=== PATIENT | female | born 1995 | race Caucasian/White ===

== ENCOUNTER 2018-09-19 15:52 | Outpatient (REF) | payer MEDICAID, SELFPAY ==
--- NOTE | 2018-09-19 15:30 | PAPFT_PTH ---
PATIENT: Naya Segovia LOC: [facility] U#:[id number] AGE/SX: 23/F ROOM: RE09/19/[address]: Ailin Shen : 1995 BED: DIS: 09/19/2018 SPEC #: [id number] RECD: 09/19/18 16:37 STATUS: HATTIE REQ #: [id number] CYNTHIA: 09/19/18 15:[address]: Ailin Shen DEPT: [facility] Cytology RECD BY: Maribel Rahman ENTERED: 09/19/18 16:38 SP TYPE: PAPFT OTHR DR: Sandra Mann Tissues: 1 - CX/ENDOCX FOR PAP SMEARS Procedures: PAP THIN PREP/UVM Screening HPV DNA PROBE Comments: [id number] (CHLAMYDIA/GC)
[2018-09-19 18:53] LABS: *AMPHETAMINES SCREEN URINE Negative (Negative); *BARBITURATES SCREEN URINE Negative (Negative); *BENZODIAZEPINES SCREEN URINE Negative (Negative); Cannabinoids THC Negative (Negative); Cocaine Screen,Urine Negative (Negative); METHADONE URINE SCREEN Negative (Negative); OPIATES URINE SCREEN Negative (Negative)
[2018-09-19 19:01] LABS: Tricyclic Antidepressants Negative (Negative)
[2018-09-22 14:39] LABS: Chlamydia Result Negative; GC Result Negative; Specimen Description SEE COMMENTS
[2018-09-24 11:20] LABS: Buprenorphine Negative; Norbuprenorphine Negative
== END 2018-09-19 16:12 ==
LOC: LBN 15:52
PROVIDERS: PCP Nurse Practitioner Family; Visit Provider Advanced Practice Midwife
DX: O26.891 Other specified pregnancy related conditions, first trimester (principal); N89.8 Other specified noninflammatory disorders of vagina; Z34.91 Encounter for supervision of normal pregnancy, unspecified, first trimester; Z11.3 Encounter for screening for infections with a predominantly sexual mode of transmission; Z12.4 Encounter for screening for malignant neoplasm of cervix
CPT/HCPCS: 80307; 87491; 87591; 88142; 87086; 87480; 87510; 87624; 87660

== ENCOUNTER 2018-10-03 10:01 | Outpatient (CLI) | payer MEDICAID, SELFPAY ==
[2018-10-03 10:59] LABS: Glucose,1 Hr (Glucola) 127 mg/dL (80-140)
[2018-10-03 11:05] LABS: Abs Immature Grans 0.02 k/cumm (0.0-0.09); Absolute Basophil Count 0.01 k/cumm (0.0-0.2); Absolute Eosinophil Count 0.06 k/cumm (0.0-0.7); Absolute Lymphocyte Count 2.03 k/cumm (1.2-3.4); Absolute Monocyte Count 0.48 k/cumm (0.11-0.7); Absolute Neutrophil Count 5.11 k/cumm (1.2-6.7); Basophils % 0.1; Eosinophils % 0.8; HCT 34.6 % (36.0-46.0); HGB 11.3 g/dL (12.0-15.5); Immature Grans % 0.3; Lymphocytes % 26.3; Mean Corp. HGB Concentration 32.7 g/dL (32.0-36.0); Mean Corpuscular Hemoglobin 29.5 pg (27.0-33.0); Mean Corpuscular Volume 90.3 fL (80-95); Monocytes % 6.2; Neutrophils % 66.3; Platelet Count 319 x1000/uL (130-400); RBC 3.83 m/cumm (4.00-5.20); RBC Distribution Width 13.3 % (11.7-14.6); White Blood Cell Count 7.71 k/cumm (4.4-10.8)
[2018-10-03 11:49] LABS: FREE T4 1.31 ng/dL (0.76-1.46); TSH 1.98 uIU/mL (0.358-3.74)
[2018-10-06 11:05] LABS: Hepatitis B Surface Ag Negative (NEGAT)
[2018-10-06 11:07] LABS: HIV-1/2 Ag & Ab Screen Negative (NEGAT)
[2018-10-06 11:08] LABS: Hepatitis C Ab w Rflx HCV PCR Negative (NEGAT)
[2018-10-06 12:25] LABS: Syphilis Serology (RPR) Negative (Negative)
[2018-10-06 13:02] LABS: Varicella IgG Antibody Positive
[2018-10-06 13:50] LABS: Rubella IgG Ab (UVM) Positive
== END 2018-10-03 10:21 ==
PROVIDERS: PCP Nurse Practitioner Family; Visit Provider Advanced Practice Midwife
DX: Z34.90 Encounter for supervision of normal pregnancy, unspecified, unspecified trimester (principal)
CPT/HCPCS: 36415; 80055; 82950; 86787; 86803; 86850; 86900; 86901; 87340; 87389; 84439; 84443; 86592; 86762

== ENCOUNTER 2018-11-12 07:54 | Observation (INO) | payer MEDICAID, SELFPAY ==
--- NOTE | 2018-11-12 08:35 | W.PM.HP.N ---
Assessment and Plan (1) Abdominal trauma: Current visit: Yes Status: Acute No acute pain or distress. Follow up with appointment at [facility] 11/17. Reviewed precautions and patient was instructed to call with bleeding, pain, contractions. (2) Second trimester : Current visit: Yes Status: Acute OB US for survey scheduled History of Present Illness Naya is a patient of [facility] and the MDs. She presented to the ED this morning after a fall in which she struck the left side of her abdomen and flank. She had some tightening of her abdomen initially but denies any pain at the moment. FHts 140 with doppler. No uterine activity detected with toco. Review of Systems Constitutional Reports as per [facility] Medical History ASCUS of cervix with negative high risk HPV (Chronic) Acquired hypothyroidism (Acute 08/27/17) Breast mass, right (Acute 08/29/17) History of asthma (Acute 11/15/16) Hypothyroidism affecting in first trimester (Acute 11/15/16) Maternal obesity syndrome in first trimester (Acute 11/15/16) (Acute) Arthritis of foot, left (Chronic) Arthritis of knee, right (Chronic) Arthritis of wrist, left (Chronic) Asthma, chronic (Chronic 97) BMI 39.0-39.9,adult (Chronic) Hypothyroid (Chronic 07/18/16) Breast abscess (Resolved) History of irregular menstrual bleeding (Resolved) Surgical History Cholecystectomy (Resolved ~2017) Arthroscopy (Chronic) Tonsillectomy and adenoidectomy (Resolved 11/05/06) Family History Mother Age: 46 No problems noted. Father Age: 45 No problems noted. Brother Age: 27 Asthma Grandmother Age: 79 Diabetes Heart disease Asthma Grandfather No problems noted. 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 Maya (Jaxon) Female Reproductive History Menstrual control method: none History History 2 Para 1 Hx # Term Pregnancies 1 Multiple births Hx # Pregnancies 0 Ectopic pregnancies AB induced Hx Number of Living Children 1 AB spontaneous Past Pregnancies Del. Date GA/Weeks # Outcome Route Wgt Sex Labor Lgth Anesthesia Location Prov Complic 06/24/16 vaginal Male O'Ad Delivery Date: 06/24/16 On 09/19/18 @ 16:51 Ailin Shen precipitous labor Meds Home Medications Medication Instructions Recorded Confirmed Type levothyroxine 100 mcg PO DAILY #60 tab 06/27/17 10/20/18 Rx acetaminophen [Tylenol] 650 mg PO Q4H PRN PRN tab 09/02/17 10/20/18 Rx 1 tab PO DAILY 09/19/18 10/20/18 History vitamin,calcium,wrurgizq-fccd-suhmk acid tablet Allergies Allergy/AdvReac Type Severity Reaction Status Date / Time azithromycin Allergy Severe Hives, Unverified 10/20/18 14:32 DIFFICULTY BREATHING Exam Const General: cooperative and no acute distress Nutritional Appearance: obese Orientation: alert and oriented to place Other: VSS
--- NOTE | 2018-11-12 08:38 | HPE_ITS ---
Assessment and Plan (1) Abdominal trauma: Current visit: Yes Status: Acute No acute pain or distress. Follow up with appointment at [facility] 11/17. Reviewed precautions and patient was instructed to call with bleeding, pain, contractions. (2) Second trimester : Current visit: Yes Status: Acute OB US for survey scheduled History of Present Illness Naya is a patient of [facility] and the MDs. She presented to the ED this morning after a fall in which she struck the left side of her abdomen and flank. She had some tightening of her abdomen initially but denies any pain at the moment. FHts 140 with doppler. No uterine activity detected with toco. Review of Systems Constitutional Reports as per [facility] Medical History ASCUS of cervix with negative high risk HPV (Chronic) Acquired hypothyroidism (Acute 08/27/17) Breast mass, right (Acute 08/29/17) History of asthma (Acute 11/15/16) Hypothyroidism affecting in first trimester (Acute 11/15/16) Maternal obesity syndrome in first trimester (Acute 11/15/16) (Acute) Arthritis of foot, left (Chronic) Arthritis of knee, right (Chronic) Arthritis of wrist, left (Chronic) Asthma, chronic (Chronic 97) BMI 39.0-39.9,adult (Chronic) Hypothyroid (Chronic 07/18/16) Breast abscess (Resolved) History of irregular menstrual bleeding (Resolved) Surgical History Cholecystectomy (Resolved ~2017) Arthroscopy (Chronic) Tonsillectomy and adenoidectomy (Resolved 11/05/06) Family History Mother Age: 46 No problems noted. Father Age: 45 No problems noted. Brother Age: 27 Asthma Grandmother Age: 79 Diabetes Heart disease Asthma Grandfather No problems noted. 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 Maya (Jaxon) Female Reproductive History Menstrual control method: none History History 2 Para 1 Hx # Term Pregnancies 1 Multiple births Hx # Pregnancies 0 Ectopic pregnancies AB induced Hx Number of Living Children 1 AB spontaneous Past Pregnancies Del. Date GA/Weeks # Outcome Route Wgt Sex Labor Lgth Anesthesia Location Prov Complic 06/24/16 vaginal Male O'Ad Delivery Date: 06/24/16 On 09/19/18 @ 16:51 Ailin Shen precipitous labor Meds Home Medications Medication Instructions Recorded Confirmed Type levothyroxine 100 mcg PO DAILY #60 tab 06/27/17 10/20/18 Rx acetaminophen [Tylenol] 650 mg PO Q4H PRN PRN tab 09/02/17 10/20/18 Rx 1 tab PO DAILY 09/19/18 10/20/18 History vitamin,calcium,tffapdkg-hbuw-huwwo acid tablet Allergies Allergy/AdvReac Type Severity Reaction Status Date / Time azithromycin Allergy Severe Hives, Unverified 10/20/18 14:32 DIFFICULTY BREATHING Exam Const General: cooperative and no acute distress Nutritional Appearance: obese Orientation: alert and oriented to place Other: VSS
== END 2018-11-12 08:45 | disposition home or self-care (01) ==
LOC: OBS 09:01
PROVIDERS: Admitting Provider Advanced Practice Midwife; PCP Nurse Practitioner Family; Visit Provider Advanced Practice Midwife
DX: O9A.212 Injury, poisoning and certain other consequences of external causes complicating pregnancy, second trimester (principal); S39.91XA Unspecified injury of abdomen, initial encounter; Z3A.18 18 weeks gestation of pregnancy; W19.XXXA Unspecified fall, initial encounter
CPT/HCPCS: 99219; G0378

== ENCOUNTER 2018-11-28 00:30 | Outpatient (CLI) | payer MEDICAID, SELFPAY ==
--- NOTE | 2018-11-28 14:17 | DI.US_ITS ---
SYMPTOMS/DIAGNOSIS: SURVEY, Z34.90 OB ULTRASOUND: The is a single living intrauterine gestation. Estimated sonographic age is 20 weeks 5 days. Predicted Gestational Age: Indication/History: 19+2 Wks Range: 18+2 Wks to 20+2 Wks Prior US done on: Determined by: First US LMP History EDC by prior US: 04/22/19 For multiple gestations: Baby PLACENTA: Grade: 0-I Location: Anterior X Posterior PRESENTATION: RT LT LOW LYING PREVIA Cephalic Trans (Head RT LT ) Varied Breech BIOMETRY: Anatomy Identified: BPD: 48 mm 20+4 wks 4 chamber Heart X Heart Rate 153 BPM HC: 182 mm 20+4 wks LVOT X Post Fossa X AC: 155 mm 20+5 wks RVOT X Ventricles X FL: 35 mm 21 wks Stomach X Nose X Bladder X Lips X Cisterna Magna: 4.7 mm CI: 77.4 Kidneys X Palate X Cerebellum: 2.04 mm 3 vessel cord X Spine X EFW: 380 grms 99% Cord Insertion X NS= not seen Composite Age (US) 20+5 wks Many abnormalities cannot be diagnosed. A normal exam does not exclude congenital abnormality. EDC by US 04/12/19 Amniotic Fluid Index: Normal COMMENTS: RUQ: LUQ: RLQ: LLQ: Total: cm Biophysical Profile: Score 0/2 NEERAJ (>2cm) Respirations (>30 sec) Body flexion/extension Extremity flexion/extension TOTAL SCORE
== END 2018-11-28 00:50 ==
PROVIDERS: PCP Nurse Practitioner Family; Visit Provider Advanced Practice Midwife
DX: Z34.92 Encounter for supervision of normal pregnancy, unspecified, second trimester (principal)
CPT/HCPCS: 76805

== ENCOUNTER 2019-01-12 11:52 | Outpatient (CLI) | payer MEDICAID, SELFPAY ==
[2019-01-12 14:10] LABS: FREE T4 1.62 ng/dL (0.76-1.46); TSH 2.31 uIU/mL (0.358-3.74)
== END 2019-01-12 12:12 ==
PROVIDERS: PCP Nurse Practitioner Family; Visit Provider Obstetrics & Gynecology
DX: O99.283 Endocrine, nutritional and metabolic diseases complicating pregnancy, third trimester; E03.9 Hypothyroidism, unspecified
CPT/HCPCS: 36415; 84439; 84443

== ENCOUNTER 2019-01-26 11:58 | Outpatient (CLI) | payer MEDICAID, SELFPAY ==
[2019-01-26 12:32] LABS: Abs Immature Grans 0.05 k/cumm (0.0-0.09); Absolute Basophil Count 0.03 k/cumm (0.0-0.2); Absolute Eosinophil Count 0.03 k/cumm (0.0-0.7); Absolute Lymphocyte Count 2.19 k/cumm (1.2-3.4); Absolute Monocyte Count 0.58 k/cumm (0.11-0.7); Absolute Neutrophil Count 8.72 k/cumm (1.2-6.7); Basophils % 0.3; Eosinophils % 0.3; HCT 33.5 % (36.0-46.0); Immature Grans % 0.4; Lymphocytes % 18.9; Mean Corp. HGB Concentration 32.8 g/dL (32.0-36.0); Mean Corpuscular Hemoglobin 30.7 pg (27.0-33.0); Mean Corpuscular Volume 93.6 fL (80-95); Mean Platelet Volume 9.8 fL (8.0-11.0); Neutrophils % 75.1; Platelet Count 321 x1000/uL (130-400); RBC 3.58 m/cumm (4.00-5.20); RBC Distribution Width 13.9 % (11.7-14.6); White Blood Cell Count 11.61 k/cumm (4.4-10.8)
[2019-01-26 12:39] LABS: Glucose,1 Hr (Glucola) 115 mg/dL (80-140)
== END 2019-01-26 12:18 ==
PROVIDERS: PCP Nurse Practitioner Family; Visit Provider Obstetrics & Gynecology
DX: Z34.92 Encounter for supervision of normal pregnancy, unspecified, second trimester (principal)
CPT/HCPCS: 36415; 82950; 85025

== ENCOUNTER 2019-02-13 09:40 | Outpatient (CLI) | payer MEDICAID, SELFPAY ==
[2019-02-13 11:02] LABS: FREE T4 1.47 ng/dL (0.76-1.46); TSH 1.99 uIU/mL (0.36-3.74)
== END 2019-02-13 10:00 ==
PROVIDERS: PCP Nurse Practitioner Family; Visit Provider Obstetrics & Gynecology
DX: Z34.93 Encounter for supervision of normal pregnancy, unspecified, third trimester (principal); E03.9 Hypothyroidism, unspecified
CPT/HCPCS: 36415; 86850; 86900; 86901; 90384; 84439; 84443

== ENCOUNTER 2019-03-04 15:24 | Outpatient (CLI) | payer MEDICAID, SELFPAY | END 2019-03-04 15:44 | PROVIDERS: PCP Nurse Practitioner Family; Visit Provider Obstetrics & Gynecology | DX: O46.93 Antepartum hemorrhage, unspecified, third trimester (principal); Z3A.33 33 weeks gestation of pregnancy | CPT/HCPCS: 59025 ==

== ENCOUNTER 2019-03-19 16:52 | Outpatient (REF) | payer MEDICAID, SELFPAY | END 2019-03-19 17:12 | LOC: LBN 16:52 | PROVIDERS: PCP Nurse Practitioner Family; Visit Provider Obstetrics & Gynecology | DX: Z34.93 Encounter for supervision of normal pregnancy, unspecified, third trimester (principal); Z36.85 Encounter for antenatal screening for Streptococcus B | CPT/HCPCS: 87081 ==

== ENCOUNTER 2019-03-27 13:32 | Outpatient (CLI) | payer MEDICAID, SELFPAY ==
[2019-03-27 15:20] LABS: TSH (W/Ref FT4) 1.98 uIU/mL (0.36-3.74)
== END 2019-03-27 13:52 ==
PROVIDERS: PCP Nurse Practitioner Family; Visit Provider Obstetrics & Gynecology
DX: O99.283 Endocrine, nutritional and metabolic diseases complicating pregnancy, third trimester (principal); Z34.93 Encounter for supervision of normal pregnancy, unspecified, third trimester
CPT/HCPCS: 36415; 80307; 84443

== ENCOUNTER 2019-03-27 16:10 | Outpatient (REF) | payer MEDICAID, SELFPAY ==
[2019-03-27 16:53] LABS: *AMPHETAMINES SCREEN URINE Negative (Negative); *BARBITURATES SCREEN URINE Negative (Negative); *BENZODIAZEPINES SCREEN URINE Negative (Negative); Cannabinoids THC Negative (Negative); Cocaine Screen,Urine Negative (Negative); METHADONE URINE SCREEN Negative (Negative); OPIATES URINE SCREEN Negative (Negative)
[2019-03-27 16:54] LABS: Tricyclic Antidepressants Negative (Negative)
[2019-04-03 11:27] LABS: Buprenorphine Negative
== END 2019-03-27 16:30 ==
LOC: LBN 16:10
PROVIDERS: PCP Nurse Practitioner Family; Visit Provider Obstetrics & Gynecology
DX: Z34.93 Encounter for supervision of normal pregnancy, unspecified, third trimester (principal)
CPT/HCPCS: 80307

== ENCOUNTER 2019-04-25 05:37 | Inpatient (IN) | payer MEDICAID, SELFPAY ==
[2019-04-25 06:43] LABS: HCT 34.5 % (36.0-46.0); HGB 11.5 g/dL (12.0-15.5); Mean Corp. HGB Concentration 33.3 g/dL (32.0-36.0); Mean Corpuscular Hemoglobin 30.7 pg (27.0-33.0); Mean Platelet Volume 9.4 fL (8.0-11.0); Platelet Count 360 x1000/uL (130-400); RBC 3.75 m/cumm (4.00-5.20); RBC Distribution Width 13.9 % (11.7-14.6); White Blood Cell Count 12.85 k/cumm (4.4-10.8)
[2019-04-25] MEDS: Ibuprofen 600 MG TAB PO ×3 (09:18→22:57)
[2019-04-25] MEDS: Hamamelis Leaf/Glycerin 100 EACH BOX PR (09:19)
[2019-04-25] MEDS: Oxytocin 10 UNITS/ML VIAL (10:11)
[2019-04-26] MEDS: Ibuprofen 600 MG TAB PO ×2 (06:12→13:20)
[2019-04-26] MEDS: Levothyroxine 100 MCG TAB PO (06:13)
[2019-04-26] MEDS: Acetaminophen 325 MG TAB 650 MG PO (13:20)
== END 2019-04-26 13:30 | disposition home or self-care (01) | DRG 807 ==
PROVIDERS: Admitting Provider Obstetrics & Gynecology Gynecology; PCP Nurse Practitioner Family; Visit Provider Obstetrics & Gynecology Gynecology
DX: O48.0 Post-term pregnancy (principal); Z37.0 Single live birth; Z3A.40 40 weeks gestation of pregnancy; O70.0 First degree perineal laceration during delivery; O42.02 Full-term premature rupture of membranes, onset of labor within 24 hours of rupture; O99.284 Endocrine, nutritional and metabolic diseases complicating childbirth; E03.9 Hypothyroidism, unspecified
CPT/HCPCS: 85027; 86850; 86900; 86901; J2590

== ENCOUNTER 2019-05-07 21:26 | Inpatient (IN) | payer MEDICAID, SELFPAY ==
--- NOTE | 2019-05-07 21:39 | W.PM.HP.N ---
Date of service: 05/07/19 Time of Service: 21:39 Assessment and Plan Assessment and plan (1) endometritis: Status: Acute Assessment and plan: Plan to make the patient a full admit. We will start on clindamycin/gentamicin for IV antibiotics. Tylenol for fever. Plan for a pelvic ultrasound in the morning to rule out retained products of conception. Will obtain CBC with differential at this evening. History of Present Illness History of Present Illness Chief Complaint: Fevers and abdominal pain Narrative: 24-year-old now approximately 1 week presents today with complaint of fevers and chills x24 hours. The patient reports that she has had increasing abdominal pain in the midline low abdomen also in the same time. She reports fevers as high as 100.8 at home. She denies any abnormal vaginal discharge. No breast tenderness. She reports fatigue and malaise as well. 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 Maya (Jaxon) Female Reproductive History Menstrual control method: none History History 2 Para 1 Hx # Term Pregnancies 1 Multiple births Hx # Pregnancies 0 Ectopic pregnancies AB induced Hx Number of Living Children 1 AB spontaneous Past Pregnancies Del. Date GA/Weeks # Outcome Route Wgt Sex Labor Lgth Anesthesia Location Prov [facility] 06/24/16 vaginal Male O'Ad Delivery Date: 06/24/16 On 11/17/18 @ 17:18 Kendra Mendez precipitous labor. Ed. Meds Home Medications and Allergies Home Medications Medication Instructions Recorded Confirmed Type prenat.vits,reinaldo,vjh-wvxp-bbjmu 1 tab PO DAILY 09/19/18 04/25/19 History levothyroxine 100 mcg tablet 100 mcg PO DAILY 02/24/19 04/25/19 History Allergies Allergy/AdvReac Type Severity Reaction Status Date / Time azithromycin Allergy Severe Hives, Unverified 04/25/19 06:26 DIFFICULTY BREATHING Exam GI Other: On exam she has significant tenderness in the low midline abdomen. No rebound or guarding. No peritoneal signs. Results Labs Result diagrams: 05/07/19 21:30
[2019-05-07] MEDS: Ibuprofen 600 MG TAB PO (22:27)
[2019-05-07] MEDS: HYDROcodone 5/Acetaminophen 325 TAB PO (22:27)
[2019-05-07 22:33] VITALS: BP 105/74; PULSE 92; RESP 18; TEMP 38.2
[2019-05-07 23:07] LABS: Bilirubin Negative (Negative); Blood Negative (Negative); Clarity Sl Cloudy (Clear); Glucose Negative (Negative); Ketones Negative (Negative); Leukocyte Esterase Trace (Negative); Nitrite Negative (Negative); Specific Gravity 1.015 (1.005-1.025); pH 8.5 (5-8)
[2019-05-07 23:11] LABS: Bacteria Few HPF (Negative); Crystals Few Amorphous HPF (Negative); Epithelial Cells Few HPF (Negative); RBC Negative (0-2)
[2019-05-07 23:12] LABS: C & S Indicated? Yes; Casts Negative LPF (Negative); Mucus Trace (Negative)
[2019-05-07 23:40] LABS: HCT 33.8 % (36.0-46.0); HGB 11.3 g/dL (12.0-15.5); Mean Corp. HGB Concentration 33.4 g/dL (32.0-36.0); Mean Corpuscular Hemoglobin 30.7 pg (27.0-33.0); Mean Corpuscular Volume 91.8 fL (80-95); Mean Platelet Volume 8.9 fL (8.0-11.0); Platelet Count 403 x1000/uL (130-400); RBC 3.68 m/cumm (4.00-5.20); RBC Distribution Width 13.3 % (11.7-14.6); White Blood Cell Count 21.01 k/cumm (4.4-10.8)
[2019-05-08] MEDS: Lactated Ringers 1,000 ML 125 ML IV ×3 (00:15→22:08)
[2019-05-08] MEDS: CLINDAMYCIN 900 MG/50 ML BAG 50 MG IVPB ×3 (00:39→23:51)
[2019-05-08 00:40] VITALS: PULSE 90; RESP 18; TEMP 38.2
[2019-05-08 07:30] VITALS: BP 98/63; PULSE 75; RESP 16; TEMP 36.7; O2SAT 100
--- NOTE | 2019-05-08 11:00 | DI.US_ITS ---
EXAM: US PELVIS TRANSVAGINAL CLINICAL HISTORY: endometritis. Evaluate for retained POC TECHNIQUE: Ultrasound performed using standard protocol. Transabdominal and transvaginal exams were performed. COMPARISON: No exams were available for comparison FINDINGS: The uterus is enlarged, consistent with status, measuring 12.5 x 8.1 x 10.8 cm. There is fluid within the endometrium which shows some internal echoes which could represent normal postpartu m hemorrhage. There is no evidence of retained products of conception. Right ovary was not able to be visualized. The left ovary was seen transabdominally and appeared normal in size. No free fluid or hydronephrosis is seen. There is a 4 millimeter nonobstructing stone in the left kidney. IMPRESSION: Enlarged hypervascular uterus with fluid and/or hemorrhage within the endometrial cavity. No visible retained products of conception.
[2019-05-08] MEDS: HYDROcodone 5/Acetaminophen 325 TAB PO ×3 (12:29→23:51)
[2019-05-08 17:45] VITALS: BP 120/72; PULSE 76; RESP 16; TEMP 37.6; O2SAT 96
[2019-05-08] MEDS: Ibuprofen 600 MG TAB PO (19:18)
--- NOTE | 2019-05-09 05:51 | NUR.NOTE ---
Nursing Note:patient arrived to the floor on 07/18 at 23:12 from the third floor. Her assessment is within normal limits. She states she is in 5/10 abd pain. She is resting comfortably in bed. Will continue to monitor.
[2019-05-09] MEDS: Ibuprofen 600 MG TAB PO ×2 (06:16→10:35)
[2019-05-09] MEDS: HYDROcodone 5/Acetaminophen 325 TAB PO (06:16)
[2019-05-09 06:19] VITALS: BP 109/71; PULSE 62; RESP 18; TEMP 36.5; O2SAT 98
[2019-05-09 08:10] VITALS: BP 112/72; PULSE 58; RESP 17; TEMP 36.8; O2SAT 99
[2019-05-09] MEDS: Lactated Ringers 1,000 ML 125 ML IV ×2 (08:44→20:37)
[2019-05-09] MEDS: CLINDAMYCIN 900 MG/50 ML BAG 50 MG IVPB ×3 (08:46→23:50)
--- NOTE | 2019-05-09 10:19 | INITIAL_ITS ---
- If Service Date Differs Date of service: 05/09/19 Time of Service: 10:20 Care Management Initial Assess REASON FOR HOSPITALIZATION:: Endometritis PAST MEDICAL HISTORY/PAST SURGICAL HISTORY:: Asthma, Osteoarthritis, breast abcess, mastitis, hypothyroidism, obesity, tonsillectomy PREVIOUS FUNCTIONAL STATUS/SOCIAL/FAMILY SUPPORTS:: Naya lives in [place] with her Ramo. Her parents also live in the home. She works in the kitchen of the local school, and Ramo works at [employer]. They have two children, Zain, who is 1.5 years old and Bety, 2 weeks old. Naya is independent at baseline. CURRENT FUNCTIONAL STATUS:: Naya was sitting up in bed when CM met with her. Her was by her side. She reported that she just had a baby, so she is hoping to go home to be with the baby soon. She stated that per the MD, if her bloodwork is ok and her pain is under control, she will be able to leave today or tomorrow. CM will continue to follow. ADVANCE DIRECTIVES:: On file, Ramo () listed as agent. Has patient been provided with information about the portal?: Yes Did the patient sign up for the portal?: No CODE STATUS:: Full Code INSURANCE COVERAGE / FINANCIAL ISSUES:: [employer] CURRENT HOME/COMMUNITY SERVICES/EQUIPMENT:: Naya currently has no services or equipment PRIMARY CARE PHYSICIAN:: Sandra Mann POTENTIAL DISCHARGE NEEDS:: Evaluation for further needs, follow up appoinments PATIENT/FAMILY EDUCATION NEEDS:: Review discharge instructions, discussion of self care needs including Ask Me Three ANTICIPATED BARRIERS TO DISCHARGE:: None identified at this time TRANSPORTATION:: Anticipate Naay will be driven home via private car by her PLAN:: Anticipate Naya will return home when medically cleared with no additional services. She will follow up with her PCP, as recommended. Her will drive her home via private vehicle. CM will continue to follow and support patient with discharge planning needs.
[2019-05-09] MEDS: Polyethylene Glycol 3350 17 GM PACKET PO ×2 (10:27→20:38)
[2019-05-09 12:08] LABS: Abs Immature Grans 0.03 k/cumm (0.0-0.09); Absolute Basophil Count 0.02 k/cumm (0.0-0.2); Absolute Eosinophil Count 0.08 k/cumm (0.0-0.7); Absolute Lymphocyte Count 1.86 k/cumm (1.2-3.4); Absolute Monocyte Count 0.69 k/cumm (0.11-0.7); Absolute Neutrophil Count 3.13 k/cumm (1.2-6.7); Basophils % 0.3; Eosinophils % 1.4; HCT 28.3 % (36.0-46.0); HGB 8.8 g/dL (12.0-15.5); Immature Grans % 0.5; Mean Corp. HGB Concentration 31.1 g/dL (32.0-36.0); Mean Corpuscular Hemoglobin 29.8 pg (27.0-33.0); Mean Corpuscular Volume 95.9 fL (80-95); Mean Platelet Volume 9.3 fL (8.0-11.0); Monocytes % 11.9; Neutrophils % 53.9; RBC 2.95 m/cumm (4.00-5.20); RBC Distribution Width 13.7 % (11.7-14.6); White Blood Cell Count 5.81 k/cumm (4.4-10.8)
[2019-05-09 12:23] LABS: Diff Comment RBC Morph Reviewed; Hypochromasia 1+; Platelet Count 264 x1000/uL (130-400)
[2019-05-09] MEDS: Acetaminophen 325 MG TAB 650 MG PO (13:49)
[2019-05-09 15:52] VITALS: BP 98/64; PULSE 54; RESP 18; TEMP 36.4; O2SAT 100
--- NOTE | 2019-05-09 17:51 | W.PM.PROGNOT ---
Date of Service Date of service: 05/08/19 Time of Service: 13:30 Assessment and Plan Assessment and plan (1) endometritis: Status: Acute Assessment and plan: Afebrile overnight. Continue Clinda/Gent. Will need the patient afebrile at least 48 hours prior to considering discontinuation of antibiotics and discharge. Subjective Subjective Interval history since last seen: Patient has been afebrile overnight. Still reports abdominal pain rated 4 out of 10 on pain scale. No abnormal vaginal discharge. I did review the ultrasound with her. Which did not demonstrate any retained products of conception. Appetite is okay. Objective Objective Clinical Data: Abnormal lab results 05/09/19 Range/Units 11:45 RBC 2.95 L (4.00-5.20) m/cumm Hgb 8.8 L D (12.0-15.5) g/dL Hct 28.3 L (36.0-46.0) % MCV 95.9 H (80-95) fL MCHC 31.1 L (32.0-36.0) g/dL Vital Signs Temperature 97.5 F L 05/09/19 15:52 Temperature Source Tympanic 05/09/19 15:52 Pulse 54 L 05/09/19 15:52 Pulse Rhythm Regular 05/09/19 15:30 Respiratory Rate 18 05/09/19 15:52 Respiratory Effort Non-Labored 05/09/19 15:30 Respiratory Depth Normal 05/09/19 15:30 Respiratory Pattern Normal 05/09/19 15:30 Blood Pressure 98/64 L 05/09/19 15:52 Pulse Oximetry 100 05/09/19 15:52 Oxygen Delivery Method Room Air 05/09/19 15:52 Oxygen Flow Rate 0 05/09/19 15:52 Pain Level 2 05/09/19 15:52 Comment 05/09/19 15:52 Intake & Output 05/08/19 05/09/19 05/09/19 23:59 11:59 23:59 Intake Total 1625.833 / 3387.500 1792.917 / 2303.334 510.417 / 2303.334 Balance 1625.833 / 3387.500 1792.917 / 2303.334 510.417 / 2303.334 Intake: IV 1625.833 / 2787.500 1102.917 / 1613.334 510.417 / 1613.334 Oral 690 / 690 Other: Urine Appearance Clear Comment Pt voiding independently pt voiding independently in the bathroom Stool Size Moderate Stool Characteristics Soft Brown Voiding Methods Toilet Toilet Laboratory Results WBC 5.81 k/cumm (4.4-10.8) 05/09/19 11:45 RBC 2.95 m/cumm (4.00-5.20) L 05/09/19 11:45 Hgb 8.8 g/dL (12.0-15.5) L D 05/09/19 11:45 Hct 28.3 % (36.0-46.0) L 05/09/19 11:45 MCV 95.9 fL (80-95) H 05/09/19 11:45 MCH 29.8 pg (27.0-33.0) 05/09/19 11:45 MCHC 31.1 g/dL (32.0-36.0) L 05/09/19 11:45 RDW 13.7 % (11.7-14.6) 05/09/19 11:45 Plt Count 264 x1000/uL (130-400) D 05/09/19 11:45 MPV 9.3 fL (8.0-11.0) 05/09/19 11:45 Immature Gran % 0.5 05/09/19 11:45 Neutrophils % 53.9 05/09/19 11:45 Lymphocytes % 32.0 05/09/19 11:45 Monocytes % 11.9 05/09/19 11:45 Eosinophils % 1.4 05/09/19 11:45 Basophils % 0.3 05/09/19 11:45 Absolute Neutrophils 3.13 k/cumm (1.2-6.7) 05/09/19 11:45 Absolute Lymphocytes 1.86 k/cumm (1.2-3.4) 05/09/19 11:45 Absolute Monocytes 0.69 k/cumm (0.11-0.7) 05/09/19 11:45 Absolute Eosinophils 0.08 k/cumm (0.0-0.7) 05/09/19 11:45 Absolute Basophils 0.02 k/cumm (0.0-0.2) 05/09/19 11:45 Differential Comment Rbc morph reviewed 05/09/19 11:45 RBC Morphology See below 05/09/19 11:45 Hypochromasia 1+ 05/09/19 11:45 Urine Color Yellow (Yellow) 05/07/19 22:51 Urine Clarity Sl cloudy (Clear) 05/07/19 22:51 Urine pH 8.5 (5-8) H 05/07/19 22:51 Ur Specific [place] 1.015 (1.005-1.025) 05/07/19 22:51 Urine Protein Negative mg/dL (Negative) 05/07/19 22:51 Urine Ketones Negative mg/dL (Negative) 05/07/19 22:51 Urine Blood Negative (Negative) 05/07/19 22:51 Urine Nitrite Negative (Negative) 05/07/19 22:51 Urine Bilirubin Negative (Negative) 05/07/19 22:51 Urine Urobilinogen 1.0 EU/dL (Up TO 0.2) H 05/07/19 22:51 Ur Leukocyte Esterase Trace (Negative) H 05/07/19 22:51 Urine RBC Negative (0-2) 05/07/19 22:51 Urine WBC 3-5 HPF (0-5) 05/07/19 22:51 Ur Epithelial Cells Few HPF (Negative) 05/07/19 22:51 Urine Crystals Few amorphous HPF (Negative) 05/07/19 22:51 Urine Bacteria Few HPF (Negative) 05/07/19 22:51 Urine Casts Negative LPF (Negative) 05/07/19 22:51 Urine Mucus Trace (Negative) 05/07/19 22:51 Ur Culture Indicated? Yes 05/07/19 22:51 Urine Glucose Negative mg/dL (Negative) 05/07/19 22:51
--- NOTE | 2019-05-09 17:53 | W.PM.PROGNOT ---
Date of Service Date of service: 05/09/19 Time of Service: 10:30 Assessment and Plan Assessment and plan (1) endometritis: Status: Acute Assessment and plan: While she has been afebrile just about 48 hours at this point I do feel that we will keep her in additional night because of her continued pain. Consider discharge home tomorrow. Subjective Subjective Interval history since last seen: Doing well today. Pain continues to improve somewhat. She does reports continued tenderness in the low midline abdomen. She has been afebrile again overnight. Laboratory studies are pending. Exam GI Other: Soft. Tenderness to palpation in the low midline abdomen. No rebound or guarding. No palpable masses. Objective Objective Clinical Data: Abnormal lab results 05/09/19 Range/Units 11:45 RBC 2.95 L (4.00-5.20) m/cumm Hgb 8.8 L D (12.0-15.5) g/dL Hct 28.3 L (36.0-46.0) % MCV 95.9 H (80-95) fL MCHC 31.1 L (32.0-36.0) g/dL Vital Signs Temperature 97.5 F L 05/09/19 15:52 Temperature Source Tympanic 05/09/19 15:52 Pulse 54 L 05/09/19 15:52 Pulse Rhythm Regular 05/09/19 15:30 Respiratory Rate 18 05/09/19 15:52 Respiratory Effort Non-Labored 05/09/19 15:30 Respiratory Depth Normal 05/09/19 15:30 Respiratory Pattern Normal 05/09/19 15:30 Blood Pressure 98/64 L 05/09/19 15:52 Pulse Oximetry 100 05/09/19 15:52 Oxygen Delivery Method Room Air 05/09/19 15:52 Oxygen Flow Rate 0 05/09/19 15:52 Pain Level 2 05/09/19 15:52 Comment 05/09/19 15:52 Intake & Output 05/08/19 05/09/19 05/09/19 23:59 11:59 23:59 Intake Total 1625.833 / 3387.500 1792.917 / 2303.334 510.417 / 2303.334 Balance 1625.833 / 3387.500 1792.917 / 2303.334 510.417 / 2303.334 Intake: IV 1625.833 / 2787.500 1102.917 / 1613.334 510.417 / 1613.334 Oral 690 / 690 Other: Urine Appearance Clear Comment Pt voiding independently pt voiding independently in the bathroom Stool Size Moderate Stool Characteristics Soft Brown Voiding Methods Toilet Toilet Laboratory Results WBC 5.81 k/cumm (4.4-10.8) 05/09/19 11:45 RBC 2.95 m/cumm (4.00-5.20) L 05/09/19 11:45 Hgb 8.8 g/dL (12.0-15.5) L D 05/09/19 11:45 Hct 28.3 % (36.0-46.0) L 05/09/19 11:45 MCV 95.9 fL (80-95) H 05/09/19 11:45 MCH 29.8 pg (27.0-33.0) 05/09/19 11:45 MCHC 31.1 g/dL (32.0-36.0) L 05/09/19 11:45 RDW 13.7 % (11.7-14.6) 05/09/19 11:45 Plt Count 264 x1000/uL (130-400) D 05/09/19 11:45 MPV 9.3 fL (8.0-11.0) 05/09/19 11:45 Immature Gran % 0.5 05/09/19 11:45 Neutrophils % 53.9 05/09/19 11:45 Lymphocytes % 32.0 05/09/19 11:45 Monocytes % 11.9 05/09/19 11:45 Eosinophils % 1.4 05/09/19 11:45 Basophils % 0.3 05/09/19 11:45 Absolute Neutrophils 3.13 k/cumm (1.2-6.7) 05/09/19 11:45 Absolute Lymphocytes 1.86 k/cumm (1.2-3.4) 05/09/19 11:45 Absolute Monocytes 0.69 k/cumm (0.11-0.7) 05/09/19 11:45 Absolute Eosinophils 0.08 k/cumm (0.0-0.7) 05/09/19 11:45 Absolute Basophils 0.02 k/cumm (0.0-0.2) 05/09/19 11:45 Differential Comment Rbc morph reviewed 05/09/19 11:45 RBC Morphology See below 05/09/19 11:45 Hypochromasia 1+ 05/09/19 11:45 Urine Color Yellow (Yellow) 05/07/19 22:51 Urine Clarity Sl cloudy (Clear) 05/07/19 22:51 Urine pH 8.5 (5-8) H 05/07/19 22:51 Ur Specific [place] 1.015 (1.005-1.025) 05/07/19 22:51 Urine Protein Negative mg/dL (Negative) 05/07/19 22:51 Urine Ketones Negative mg/dL (Negative) 05/07/19 22:51 Urine Blood Negative (Negative) 05/07/19 22:51 Urine Nitrite Negative (Negative) 05/07/19 22:51 Urine Bilirubin Negative (Negative) 05/07/19 22:51 Urine Urobilinogen 1.0 EU/dL (Up TO 0.2) H 05/07/19 22:51 Ur Leukocyte Esterase Trace (Negative) H 05/07/19 22:51 Urine RBC Negative (0-2) 05/07/19 22:51 Urine WBC 3-5 HPF (0-5) 05/07/19 22:51 Ur Epithelial Cells Few HPF (Negative) 05/07/19 22:51 Urine Crystals Few amorphous HPF (Negative) 05/07/19 22:51 Urine Bacteria Few HPF (Negative) 05/07/19 22:51 Urine Casts Negative LPF (Negative) 05/07/19 22:51 Urine Mucus Trace (Negative) 05/07/19 22:51 Ur Culture Indicated? Yes 05/07/19 22:51 Urine Glucose Negative mg/dL (Negative) 05/07/19 22:51
[2019-05-09 23:45] VITALS: BP 112/76; PULSE 71; RESP 16; TEMP 37.3; O2SAT 100
[2019-05-10] MEDS: Acetaminophen 325 MG TAB 650 MG PO ×2 (01:15→10:59)
[2019-05-10] MEDS: Lactated Ringers 1,000 ML 125 ML IV (05:05)
[2019-05-10 07:21] VITALS: BP 116/77; PULSE 56; RESP 17; TEMP 36.9; O2SAT 98
[2019-05-10] MEDS: Polyethylene Glycol 3350 17 GM PACKET PO (07:30)
[2019-05-10] MEDS: CLINDAMYCIN 900 MG/50 ML BAG 50 MG IVPB (07:31)
--- NOTE | 2019-05-10 09:57 | W.PM.PROGNOT ---
Date of Service Date of service: 05/10/19 Time of Service: 09:57 Assessment and Plan Assessment and plan (1) endometritis: Status: Acute Assessment and plan: Doing well. Suitable for discharge. No need for outpatient antibiotics. Discharge home today. Subjective Subjective Interval history since last seen: Doing well today. Pain almost completely resolved. She has been afebrile since admission. Desires discharge home. Objective Objective Clinical Data: Abnormal lab results 05/09/19 Range/Units 11:45 RBC 2.95 L (4.00-5.20) m/cumm Hgb 8.8 L D (12.0-15.5) g/dL Hct 28.3 L (36.0-46.0) % MCV 95.9 H (80-95) fL MCHC 31.1 L (32.0-36.0) g/dL Vital Signs Temperature 98.4 F 05/10/19 07:21 Temperature Source Tympanic 05/10/19 07:21 Pulse 56 L 05/10/19 07:21 Pulse Rhythm Regular 05/10/19 04:25 Respiratory Rate 17 05/10/19 07:21 Respiratory Effort Non-Labored 05/10/19 04:25 Respiratory Depth Normal 05/10/19 04:25 Respiratory Pattern Normal 05/10/19 04:25 Blood Pressure 116/77 05/10/19 07:21 Pulse Oximetry 98 05/10/19 07:21 Oxygen Delivery Method Room Air 05/10/19 07:21 Oxygen Flow Rate 0 05/10/19 07:21 Pain Level 2 05/10/19 07:21 Comment 05/09/19 15:52 Intake & Output 05/09/19 05/09/19 05/10/19 11:59 23:59 10:59 Intake Total 1792.917 / 2959.584 1166.667 / 2959.584 1815.833 / 1815.833 Balance 1792.917 / 2959.584 1166.667 / 2959.584 1815.833 / 1815.833 Intake: IV 1102.917 / 2029.584 926.667 / 2029.584 1415.833 / 1415.833 Oral 690 / 930 240 / 930 400 / 400 Other: Comment pt voiding independently in the bathroom pt voiding independently in the bathroom, denies discomfort. Stool Size Moderate Stool Characteristics Soft Brown Voiding Methods Toilet Toilet Laboratory Results WBC 5.81 k/cumm (4.4-10.8) 05/09/19 11:45 RBC 2.95 m/cumm (4.00-5.20) L 05/09/19 11:45 Hgb 8.8 g/dL (12.0-15.5) L D 05/09/19 11:45 Hct 28.3 % (36.0-46.0) L 05/09/19 11:45 MCV 95.9 fL (80-95) H 05/09/19 11:45 MCH 29.8 pg (27.0-33.0) 05/09/19 11:45 MCHC 31.1 g/dL (32.0-36.0) L 05/09/19 11:45 RDW 13.7 % (11.7-14.6) 05/09/19 11:45 Plt Count 264 x1000/uL (130-400) D 05/09/19 11:45 MPV 9.3 fL (8.0-11.0) 05/09/19 11:45 Immature Gran % 0.5 05/09/19 11:45 Neutrophils % 53.9 05/09/19 11:45 Lymphocytes % 32.0 05/09/19 11:45 Monocytes % 11.9 05/09/19 11:45 Eosinophils % 1.4 05/09/19 11:45 Basophils % 0.3 05/09/19 11:45 Absolute Neutrophils 3.13 k/cumm (1.2-6.7) 05/09/19 11:45 Absolute Lymphocytes 1.86 k/cumm (1.2-3.4) 05/09/19 11:45 Absolute Monocytes 0.69 k/cumm (0.11-0.7) 05/09/19 11:45 Absolute Eosinophils 0.08 k/cumm (0.0-0.7) 05/09/19 11:45 Absolute Basophils 0.02 k/cumm (0.0-0.2) 05/09/19 11:45 Differential Comment Rbc morph reviewed 05/09/19 11:45 RBC Morphology See below 05/09/19 11:45 Hypochromasia 1+ 05/09/19 11:45 Urine Color Yellow (Yellow) 05/07/19 22:51 Urine Clarity Sl cloudy (Clear) 05/07/19 22:51 Urine pH 8.5 (5-8) H 05/07/19 22:51 Ur Specific [place] 1.015 (1.005-1.025) 05/07/19 22:51 Urine Protein Negative mg/dL (Negative) 05/07/19 22:51 Urine Ketones Negative mg/dL (Negative) 05/07/19 22:51 Urine Blood Negative (Negative) 05/07/19 22:51 Urine Nitrite Negative (Negative) 05/07/19 22:51 Urine Bilirubin Negative (Negative) 05/07/19 22:51 Urine Urobilinogen 1.0 EU/dL (Up TO 0.2) H 05/07/19 22:51 Ur Leukocyte Esterase Trace (Negative) H 05/07/19 22:51 Urine RBC Negative (0-2) 05/07/19 22:51 Urine WBC 3-5 HPF (0-5) 05/07/19 22:51 Ur Epithelial Cells Few HPF (Negative) 05/07/19 22:51 Urine Crystals Few amorphous HPF (Negative) 05/07/19 22:51 Urine Bacteria Few HPF (Negative) 05/07/19 22:51 Urine Casts Negative LPF (Negative) 05/07/19 22:51 Urine Mucus Trace (Negative) 05/07/19 22:51 Ur Culture Indicated? Yes 05/07/19 22:51 Urine Glucose Negative mg/dL (Negative) 05/07/19 22:51
--- NOTE | 2019-05-10 10:01 | W.PM.DS.N ---
Date of service: 05/10/19 Time of Service: 10:01 DS: Diagnosis Discharge Diagnosis (1) endometritis: Status: Acute Discharge Plan Disposition Patient Disposition: HOME Condition: Good Discharge Details Reason For Visit: EDOMETRITIS Admit Date/Time: 05/07/19 21:26 Admit Provider: Kirill Francisco Attending Provider: Kirill Francisco Primary Care Provider: Sandra Mann Hospital Course Hospital Course: The patient was admitted for increased abdominal pain and fevers at home. She did have a pelvic ultrasound which did not demonstrate retained products. She was felt to have an uncomplicated endometrititis. She was placed on Clinda/Gent for antibiotics. She remained afebrile throughout admission. Her pain resolved almost completely by HD 3 and she was felt suitable for discharge home. Home Meds and New Rx's Prescriptions: Continued prenat.vits,reinaldo,qls-pviz-ixeww tablet 1 tab PO DAILY RF: 0 levothyroxine [Synthroid] 100 mcg tablet 100 mcg PO DAILY RF: 0 Discharge Instructions Activity:: Activity as Tolerated Equipment/Supplies:: No Equipment Needed Diet:: As Tolerated Discharge Orders Discharge Orders: Discharge Order (Routine); Ordered 05/10/19 Ordered By: Kirill Francisco DS: Summary Status at Discharge Functional status at discharge: independent ambulation Overall status at discharge: patient is back to baseline Mental Status: mental status grossly normal Speech and Movement: speech and movement normal Mood: congruent mood Affect: normal affect Exam Psych Mental Status: mental status grossly normal Speech and Movement: speech and movement normal Mood: congruent mood Affect: normal affect DS: Data Vitals/I&O Vitals and I&O: Vital Signs Temperature 98.4 F 05/10/19 07:21 Temperature Source Tympanic 05/10/19 07:21 Pulse 56 L 05/10/19 07:21 Pulse Rhythm Regular 05/10/19 04:25 Respiratory Rate 17 05/10/19 07:21 Respiratory Effort Non-Labored 05/10/19 04:25 Respiratory Depth Normal 05/10/19 04:25 Respiratory Pattern Normal 05/10/19 04:25 Blood Pressure 116/77 05/10/19 07:21 Pulse Oximetry 98 05/10/19 07:21 Oxygen Delivery Method Room Air 05/10/19 07:21 Oxygen Flow Rate 0 05/10/19 07:21 Pain Level 2 05/10/19 07:21 Comment 05/09/19 15:52 Intake & Output 05/09/19 05/09/19 05/10/19 11:59 23:59 10:59 Intake Total 1792.917 / 2959.584 1166.667 / 2959.584 1815.833 / 1815.833 Balance 1792.917 / 2959.584 1166.667 / 2959.584 1815.833 / 1815.833 Intake: IV 1102.917 / 2029.584 926.667 / 2029.584 1415.833 / 1415.833 Oral 690 / 930 240 / 930 400 / 400 Other: Comment pt voiding independently in the bathroom pt voiding independently in the bathroom, denies discomfort. Stool Size Moderate Stool Characteristics Soft Brown Voiding Methods Toilet Toilet Data Completed and Pending Labs on day of discharge: Labs from last 24 hours 05/09/19 11:45 WBC 5.81 RBC 2.95 L Hgb 8.8 L D Hct 28.3 L MCV 95.9 H MCH 29.8 MCHC 31.1 L RDW 13.7 Plt Count 264 D MPV 9.3 Immature Gran % 0.5 Neutrophils % 53.9 Lymphocytes % 32.0 Monocytes % 11.9 Eosinophils % 1.4 Basophils % 0.3 Absolute Neutrophils 3.13 Absolute Lymphocytes 1.86 Absolute Monocytes 0.69 Absolute Eosinophils 0.08 Absolute Basophils 0.02 Differential Comment Rbc morph reviewed RBC Morphology See below Hypochromasia 1+ PFSH Social History Smoking/Tobacco Use Status: Never Household members: spouse and children Number of Children: 1 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 Maya (Jaxon) Female Reproductive History Menstrual control method: none History History 2 Para 1 Hx # Term Pregnancies 1 Multiple births Hx # Pregnancies 0 Ectopic pregnancies AB induced Hx Number of Living Children 1 AB spontaneous Past Pregnancies Del. Date GA/Weeks # Outcome Route Wgt Sex Labor Lgth Anesthesia Location Prov Complic 12/18/16 vaginal Male O'Ad Delivery Date: 06/24/16 On 11/17/18 @ 17:18 Kendra Mendez precipitous labor.
--- NOTE | 2019-05-10 11:32 | PDOC.CMDIS ---
- If Service Date Differs Date of service: 05/10/19 Time of Service: 11:32 LACE Index Scoring Tool - Questions: Length of Stay (in days): 4 - 6 Acuity (Admit via E.D.?): No E.D. Visits: 0 - Answers: Total Score: 4 Risk of Readmission: Low Risk Care Management Discharge Reason for Hospitalization: Endometritis Discharge Plan: Naya will return home with no additional services at this time. She will follow up with her PCP, as recommended. Her , Ramo, will drive her home via private vehicle. Patient/Family Education Needs: Review discharge instructions, discussion of self care needs including Ask Me Three
== END 2019-05-10 11:32 | disposition home or self-care (01) | DRG 776 ==
LOC: OBS 05-08 13:44 → MS 05-09 01:46
PROVIDERS: Admitting Provider Obstetrics & Gynecology; PCP Nurse Practitioner Family; Visit Provider Obstetrics & Gynecology
DX: O86.12 Endometritis following delivery (principal); O99.285 Endocrine, nutritional and metabolic diseases complicating the puerperium; E03.9 Hypothyroidism, unspecified
CPT/HCPCS: 36415; 85027; 99223; 99233; 99239; 76830; 76856; 81003; 81015; 85025; 87086; J1580

== ENCOUNTER 2020-01-19 09:18 | Outpatient (REF) | payer BC, SELFPAY ==
[2020-01-19 19:41] LABS: FREE T4 1.18 ng/dL (0.76-1.46); TSH 2.84 uIU/mL (0.36-3.74)
== END 2020-01-19 09:38 ==
LOC: NCHCN 09:18
PROVIDERS: PCP Nurse Practitioner Family; Visit Provider Nurse Practitioner Family
DX: E03.9 Hypothyroidism, unspecified (principal)
CPT/HCPCS: 84439; 84443

== ENCOUNTER 2020-10-18 11:42 | Outpatient (REF) | payer BC, SELFPAY ==
[2020-10-19 12:24] LABS: COVID-19 RT-PCR UVMMC Result Negative (Negative)
== END 2020-10-18 11:43 | disposition home or self-care (01) ==
LOC: LBN 11:42
PROVIDERS: PCP Nurse Practitioner Family; Visit Provider Family Medicine
DX: Z20.822 Contact with and (suspected) exposure to COVID-19 (principal); J06.9 Acute upper respiratory infection, unspecified
CPT/HCPCS: U0003

== ENCOUNTER 2022-01-01 20:39 | Outpatient (REF) | payer BC, SELFPAY ==
[2022-01-03 15:13] LABS: COVID-19 RT-PCR UVMMC Result Negative (Negative)
== END 2022-01-01 20:40 | disposition home or self-care (01) ==
LOC: LBN 20:39
PROVIDERS: PCP Nurse Practitioner Family; Visit Provider Nurse Practitioner Family
DX: Z20.822 Contact with and (suspected) exposure to COVID-19 (principal)
CPT/HCPCS: U0003

== ENCOUNTER 2023-09-02 13:06 | Outpatient (REF) | payer BC, SELFPAY ==
[2023-09-02 15:37] LABS: Abs Immature Grans 0.03 10^3/uL (0.0-0.06); Absolute Basophil Count 0.07 10^3/uL (0.0-0.2); Absolute Eosinophil Count 0.08 10^3/uL (0.0-0.7); Absolute Monocyte Count 0.37 10^3/uL (0.1-0.8); Absolute Neutrophil Count 4.45 10^3/uL (1.2-6.7); Eosinophils % 1.1; HCT 40.8 % (36.0-46.0); HGB 13.3 g/dL (11.2-15.7); Immature Grans % 0.4; Lymphocytes % 30.6; MCH 30.4 pg (27.0-33.0); MCHC 32.6 % (32.0-36.0); MCV 93 fL (80-95); Monocytes % 5.1; Neutrophils % 61.8; RBC 4.37 10^6/uL (3.93-5.22); RDW 13.1 % (11.7-14.6); RDW-SD 44.9 fL
[2023-09-02 15:59] LABS: ALT 15 U/L (14-59); AST 14 U/L (15-37); Albumin 3.9 g/dL (3.4-5.0); Alkaline Phosphatase 81 U/L (46-116); Anion Gap 11.6 mmol/L (3-11); BUN 13 mg/dL (7-18); Bilirubin, Total 0.2 mg/dL (0.2-1.0); CO2 25.4 mmol/L (21.0-32.0); CREATININE 0.8 mg/dL (0.55-1.02); Calcium 8.9 mg/dL (8.5-10.1); Chloride 105 mmol/L (98-107); Estimated GFR 104.15 (mL/min/1.73m2); FREE T4 1.21 ng/dL (0.76-1.46); Glucose 105 mg/dL (74-106); Potassium 3.9 mmol/L (3.5-5.1); Sodium 142 mmol/L (136-145); Total Protein 7.5 g/dL (6.4-8.2)
[2023-09-02 16:04] LABS: Diff Comment PLT Morph Reviewed
[2023-09-02 16:05] LABS: RBC Morphology Normal
[2023-09-02 16:38] LABS: Ferritin 87 ng/mL (8-252)
[2023-09-02 17:16] LABS: Vitamin D 25 Total 12.7 ng/mL (30-100)
[2023-09-02 17:25] LABS: Iron 59 ug/dL (50-170)
[2023-09-02 17:29] LABS: Total Iron Binding Capacity < 36 ug/dL (250-450)
== END 2023-09-02 13:07 | disposition home or self-care (01) ==
LOC: NCHCN 13:06
PROVIDERS: PCP Nurse Practitioner Family; Visit Provider Nurse Practitioner Family
DX: E03.9 Hypothyroidism, unspecified (principal); F41.8 Other specified anxiety disorders; R53.83 Other fatigue; Z68.42 Body mass index [BMI] 45.0-49.9, adult
CPT/HCPCS: 80053; 82306; 82728; 83036; 83540; 83550; 84439; 84443; 85025

== ENCOUNTER 2023-10-04 12:03 | Outpatient (REF) | payer BC, SELFPAY ==
[2023-10-04 15:35] LABS: Uric Acid 5.9 mg/dL (2.6-6.0)
[2023-10-07 17:14] LABS: Anaplasma phagocytophilum Negative (Negative); B. miyamotoi PCR Negative (Negative); Babesia divergens/MO-1 Negative (Negative); Babesia duncani Negative (Negative); Babesia microti Negative (Negative); Ehrlichia chaffeensis Negative (Negative); Ehrlichia ewingii/canis Negative (Negative); Ehrlichia muris eauclairensis Negative (Negative)
== END 2023-10-04 12:04 | disposition home or self-care (01) ==
LOC: NCHCN 12:03
PROVIDERS: PCP Nurse Practitioner Family; Visit Provider Student in an Organized Health Care Education/Training Program
DX: M79.642 Pain in left hand (principal)
CPT/HCPCS: 87798; 84550

== ENCOUNTER 2023-12-05 16:24 | Outpatient (REF) | payer BC, SELFPAY ==
--- NOTE | 2023-12-05 14:30 | PAPFT_PTH ---
PATIENT: Naya Segovia LOC: NCN #:[id number] AGE/SX: 28/F ROOM: RE12/05/[address]: Shabnam Segovia : 1995 BED: DIS: 12/05/2023 SPEC #: [id number] RECD: 12/06/23 12:52 STATUS: HATTIE REQ #: [id number] CYNTHIA: 12/05/23 14:[address]: Shabnam Segovia DEPT: [facility] Cytology RECD BY: Margaret Gill ENTERED: 12/06/23 12:53 SP TYPE: PAPFT OTHR DR: Sandra Mann Tissues: 1 - CX/ENDOCX FOR PAP SMEARS Procedures: PAP THIN PREP/[facility] Screening Comments: [id number]
== END 2023-12-05 16:25 | disposition home or self-care (01) ==
LOC: NCHCN 16:24
PROVIDERS: PCP Nurse Practitioner Family; Visit Provider Nurse Practitioner Family
DX: Z12.4 Encounter for screening for malignant neoplasm of cervix (principal)
CPT/HCPCS: 88142

== ENCOUNTER 2024-06-19 00:30 | Outpatient (CLI) | payer BC, SELFPAY ==
--- NOTE | 2024-06-19 | DI.RAD_ITS ---
Exam(s) XR HIP PELVIS ADULT BL EXAM: XR HIP PELVIS ADULT BL CLINICAL HISTORY: DORSALGIA M54.9,CHRONIC SACRAL PAIN. TECHNIQUE: 2D digital imaging was performed. Three views. COMPARISON: CR XR LUMBAR SPINE COMPLETE from 06/19/2024 FINDINGS: BONES: No acute fracture is present. No bony destructive lesion is seen. JOINTS: The hip joint spaces are maintained. No significant periarticular spurring. There is mild s purring and sclerosis at the inferior left SI joint. No bony erosions. The pubic symphysis is unrem arkable. SOFT TISSUE: Normal. IMPRESSION: Mild degenerative changes at the left SI joint. DATA REPOSITORY: RADIATION DOSE DELIVERED:
--- OUTSIDE RECORDS SUMMARY | 2024-06-19 00:34 | XMS_ITS | Encounter Summary ---
Author Organization [facility] Address [address] [place] [address] Care Team Providers Care Tactical Air Control Party Manager Name Role Phone Sandra Mann PULP MAKING PLANT OPERATOR Primary Care Provider [phone] Encounter Details Date Type Department Care Team (Late st Contact Info) Description 01/01/2022 Lab Requisition [facility] Pathology & Laboratory Medicine - [address] [id number] Outr Resulting Lab, Provider Social History Tobacco Use Types Packs/Day Years Used Date Smoking Tobacco: Never Assessed Interpersonal Safety Answer Date Record ed Physically Hurt Never 02/08/2020 Verbally Threaten Not on file 02/08/2020 Comments Unknown Sex and Gender Information Value Date Recorded Sex Assigned at Not on file Legal Sex Female 19:50 EST Gender Identity Not on file Sexual Orientation Not on file documented as of this encounter Plan of Treatment Not on file documented as of this encounter Procedures Procedure Name Priority Date/Time Associated Diagnosis Comments ZZCOVID-19 TEST [facility] PCR Today 01/01/2022 14:36 EDT COVID-19 TESTING Routine 01/01/2022 14:3 6 EDT documented in this encounter Results * COVID-19 TEST [facility] PCR (01/01/2022 14:36 EDT) Swab 01/01/2022 14:3 6 EDT 01/02/2022 16:29 EDT us Provider Outr Resulting Lab MICROBIOLOGY - GENER AL ORDERABLES Final Result Performing Organization Address City/[facility] Co de Phone Number [facility] [address] [place] [address] * COVID-19 TESTING (01/01/2022 14:36 EDT) COVID-19 rt-PCR Result Negative Negative 01/03/2022 15:07 EDT [facility] Comment: This test has not been FDA cleared or approved. This test has been authorized by FDA under an EUA for use by authorized laboratories. This test has been authorized only for detection of nucleic acid from 2019-nCoV, not for any other viruses or pathogens. This test is only authorized for the duration of the declaration that circumstances exist justifying the authorization of emergency use of in vitro diagnostic tests for detection and/or diagnosis of 2019-nCoV under section 564(b)(1) of Act, 21 U.S.C ?? 360bbb-3(b) (1), unless the authorization is terminated or revoked sooner. Negative results do not preclude 2019-nCoV infection and should not be used as the sole basis for treatment or other patient management decisions. Negative results must be combined with clinical observations, patient history, and epidemiological information. Testing was performed using the bill SARS-CoV-2 assay ([employer] on the Bill 6800 System Performing Lab Bill 6800 [facility] 01/03/2022 15:07 EDT [facility] Swab 01/01/2022 14:3 6 EDT 01/02/2022 16:29 EDT us Provider Outr Resulting Lab MICROBIOLOGY - GENER AL ORDERABLES Final Result Performing Organization Address [facility] de Phone Number [facility] [address] [place] [address] documented in this encounter Visit Diagnoses Not on filedocumented in this encounter Care Teams Tactical Air Control Party Manager Relationship Specialty Start Date End Date Sandra Mann NP [address] [place] [id number] PCP - General 09/05/17 documented as of this encounter
--- OUTSIDE RECORDS SUMMARY | 2024-06-19 00:34 | XMS_ITS | Encounter Summary ---
Author Organization [facility] Address [address] [place] [address] Care Team Providers Care Closed Circuit Screen Watcher Name Role Phone Unavailable Primary Care Provider Unavailabl e Encounter Details Date Type Department Care Team (Latest Contact Info) Description 09/01/2017 12:53 EST - 09/01/2017 23:59 EST Hospital Encounter [address] [address] Unknown, Provider, MD Discharge Disposition: Home or Self Care Social History Tobacco Use Types Packs/Day Years Used Date Smoking Tobacco: Never Assessed Comments Unknown Sex and Gender Information Value Date Recorded Sex Assigned at Not on file Legal Sex Female 19:50 EST Gender Identity Not on file Sexual Orientation Not on file documented as of this encounter Discharge Disposition Disposition Code Departure Means Destination Home or Self Halfway documented in this encounter Plan of Treatment Not on file documented as of this encounter Visit Diagnoses Not on filedocumented in this encounter
--- OUTSIDE RECORDS SUMMARY | 2024-06-19 00:34 | XMS_ITS | Encounter Summary ---
Author Organization [facility] Address [address] [place] [address] Care Team Providers Care Tennis Court Attendant Name Role Phone Sandra Mann SEWING MACHINE MAINTENANCE MECHANIC Primary Care Provider [phone] Encounter Details Date Type Department Care Team (Latest Contact Info) Description 12/09/2023 Lab Requisition [facility] Pathology & Laboratory Medicine - [facility] [address] [place] [address] Shabnam Segovia FNP [address] [facility] [address] [place] [address] Encounter for screening for human papillomavirus (HPV); Encounter for screening for malignant neoplasm of cervix; Encounter for general adult medical examination without abnormal findings Social History Tobacco Use Types Packs/Day Years [...] Procedure Name Priority Date/Time Associated Diagnosis Comments PAP TEST Today 12/05/2023 14:30 EDT Encounter for screening for human papillomavirus (HPV) Encounter for screening for malignant neoplasm of cervix Encounter for general adult medical examination without abnormal findings documented in this encounter Results * PAP TEST (12/05/2023 14:30 EDT) Specimens A. Cervix and/or Endocervix , ThinPrep Imaging System with Manual Evaluation 12/13/2023 13:19 [facility] Specimen Adequacy Satisfactory for Evaluation - transformation zone component present 12/13/2023 13:19 [facility] General Categorization Negative for intraepithelial lesion or malignancy 12/13/2023 13:19 [facility] Descriptive Diagnosis Reactive cellular changes associated with inflammation present (includes repair). 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 12/13/2023 13:19 [facility] Attestation By the signature below, the attending physician certifies that they have personally conducted a gross and/or microscopic examination of the described specimens and rendered or confirmed the above diagnosis. 12/13/2023 13:19 [facility] at 1319 Clinical History See below 12/13/19 13:19 [facility] Performing Lab [facility] 12/13/2023 13:19 [facility] Scanned Images 12/13/2023 13:19 [facility] Pap Test CERVIX UTERI STRUCTURE / Unknown 12/05/2023 14:30 EDT 12/09/2023 9:47 EDT Shabnam Segovia MULTIPLE EFFECT EVAPORATOR OPERATOR PATHOLOGY ORDERABLES Final Re sult [facility] [address] [place] [address] documented in this encounter Visit Diagnoses Diagnosis Encounter for screening for human papillomavirus (HPV) Special screening examination for human papillomavirus (HPV) Encounter for screening for malignant neoplasm of cervix Screening for malignant neoplasm of the cervix Encounter for general adult medical examination without abnormal findings Unspecified general medical examination documented in this encounter Care Teams Tennis Court Attendant Relationship Specialty Start Date End Date Sandra Mann NP [address] [place] [address] PCP - General 09/05/17 documented as of this encounter
--- OUTSIDE RECORDS SUMMARY | 2024-06-19 00:34 | XMS_ITS | Continuity of Care Document ---
Author Organization [facility] Address [address] [place] [address] Care Team Providers Care Student Liaison Officer Name Role Phone Shabnam Segovia Primary Care Physician Encounter [place] Date(s): 09/20/23 - 09/20/[address] [address] Discharge Disposition: Home or Self Care Attending Physician: Reta Pérez PA-C Admitting Physician: Reta Pérez PA-C Referring Physician: Reta Pérez PA-C Social History Social History Type Response Sex Female Patient Care team information Care Team Personnel Name: Shabnam Segovia PHYSICAL CHEMIST Position: No Access Member Role: Primary Care Physician Address: Address: [address] [place] [address] Care Team Related Persons Name: EDWIN SEGOVIA
--- OUTSIDE RECORDS SUMMARY | 2024-06-19 00:34 | XMS_ITS | Encounter Summary ---
Author Organization [facility] Address [address] [place] [address] Care Team Providers Care Supervisor Fish Bait Processing Name Role Phone Sandra Mann DORMITORY SUPERVISOR Primary Care Provider [phone] Encounter Details Date Type Department Care Team (Late st Contact Info) Description 10/18/2020 Lab Requisition [facility] Pathology & Laboratory Medicine - [address] [phone] Outr Resulting Lab, Provider Social History Tobacco [...] Comments ZZCOVID-19 TEST [facility] PCR Today 10/18/2020 11:30 EDT COVID-19 TESTING Routine 10/18/2020 11:3 0 EDT documented in this encounter Results * COVID-19 TEST [facility] PCR (10/18/2020 11:30 EDT) Swab ENTIRE NASOPHARYNX / Unknown 10/18/2020 11:30 EDT 10/18/2020 15:34 EDT us Provider Outr Resulting Lab MICROBIOLOGY - GENER AL ORDERABLES Final Result Performing Organization Address [facility] Co de Phone Number [facility] [address] [place] [address] * COVID-19 TESTING (10/18/2020 11:30 EDT) COVID-19 rt-PCR Result Negative Negative 10/19/2020 12:[address] [facility] Comment: This test has not [...] performed using the bill SARS-CoV-2 assay ([employer] on the Bill 6800 System Performing Lab Bill 6800 [facility] Lab 10/19/2020 12:[address] [facility] Swab 10/18/2020 11:3 0 EDT 10/18/2020 15:34 EDT us Provider Outr Resulting Lab MICROBIOLOGY - GENER AL ORDERABLES Final Result Performing Organization Address [facility] Co de Phone Number [facility] [address] [place] [address] documented in this encounter Visit Diagnoses Not on filedocumented in this encounter Care Teams Supervisor Fish Bait Processing Relationship Specialty Start Date End Date Sandra Mann NP [address] [place] [address] PCP - General 09/05/17 documented as of this encounter
--- OUTSIDE RECORDS SUMMARY | 2024-06-19 00:34 | XMS_ITS | Encounter Summary ---
Author Organization [facility] Address [address] [place] [address] Care Team Providers Care Personal Banking Officer Name Role Phone Unknown, Provider Primary Care Provider Unava ilable Encounter Details Date Type Department Care Team (Late st Contact Info) Description 09/01/2017 Results Only [facility] [phone] Cunningham Sary Trino, DO [address] [place] [address] Social History Tobacco Use Types Packs/Day Years [...] Procedure Name Priority Date/Time Associated Diagnosis Comments SURGICAL PATHOLOGY Routine 09/01/2017 19 :52 EST documented in this encounter Results * SURGICAL PATHOLOGY (09/01/2017 19:52 EST) Pathology Report: SURGICAL PATHOLOGY REPORT Reports generated via electronic interface contain original data; however they are lacking the format of the original report. Caution should be taken when reading/interpret ing unformatted reports. Name: ? FLAQUITO SOLOMON ? Accession #: ? [id number] ? : ? 1995 (Age: 22) ??F ? Collect Date: ? 09/01/2017 ? Location: ? [facility] ? Receive Date: ? 09/02/2017 ? Provider: SARY CUNNINGHAM DO Copy to: DICK DORMAN WASTEWATER PROJECT MANAGER ? Final Pathologic Diagnosis: GALLBLADDER, CHOLECYSTECTOMY: - Chronic cholecystitis with cholelithiasis. Document reviewed and electronically signed by: LARISA CRUZ MD Report ??Date: 09/05/2017 12:55 By the signature above, the attending physician certifies that he/she has personally conducted a gross and/or microscopic examination of the described specimens and rendered or confirmed the above diagnosis. Specimen(s) Received: Gallbladder Clinical History: Biliary colic; clinical diagnosis code: ??K80.5 Gross Description: ? Received in formalin labelled with proper patient identification (initials G, S) and gallbladder is an intact gallbladder (7.5 x 3.0 x 1.5 cm) with an attached segment of cystic duct (1.6 cm in length x 0.4 cm in diameter). ? The serosa is [place] and smooth. The mucosa is bile-stained, velvety and the wall is 0.9 cm in thickness. The cystic duct lumen is patent. The cystic duct margin is inked blue. Multiple bright yellow choleliths are present measuring 3.0 x 2.0 x 0.8 cm in aggregate. ? Two u.s. representative sections and the inked en face cystic duct margin are submitted in 1. Dr. Torres 09/03/2017 4:[address] [facility] 09/01/2017 19:5 2 EST 09/02/2017 19:52 EST us Sary Cunningham DO PATHOLOGY ORDERABLES Final Res ult [facility] [address] [place] [address] documented in this encounter Visit Diagnoses Not on filedocumented in this encounter Care Teams Personal Banking Officer Relationship Specialty Start Date End Date Unknown, Provider, PCP - General 09/02/17 09/04/17 documented as of this encounter
--- OUTSIDE RECORDS SUMMARY | 2024-06-19 00:34 | XMS_ITS | Encounter Summary ---
Author Organization [facility] Address [address] [place] [address] Care Team Providers Care Stonemason Supervisor Name Role Phone Sandra Dorman HEALTH AND WELLNESS ADVISOR Primary Care Provider [phone] Encounter Details Date Type Department Care Team (Late st Contact Info) Description 09/19/2018 Results Only [facility] [phone] [facility] [address] [place] [address] [place] [address] Social History Tobacco Use Types Packs/Day Years [...] Name Priority Date/Time Associated Diagnosis Comments PAP TEST- RESULT ONLY Routine 09/19/2018 0:00 EDT documented in this encounter Results * PAP TEST- RESULT ONLY (09/19/2018 0:00 EDT) Pathology Report: CYTOPATHOLOGY REPORT Reports generated via electronic interface contain original data; however they are lacking the format of the original report. Caution should be taken when reading/interpreti ng unformatted reports. Name: ? FLAQUITO SOLOMON ? Accession #: ? [id number] ? : ? 1995 (Age: 23) ??F ?Collect Date: ? 09/19/2018 ? Location: ? [facility] ? Receive Date: ? 09/22/2018 ? Provider: LEIDY SHEN CNM Copy to: SANDRA DORMAN HEALTH AND WELLNESS ADVISOR ? Final Report SPECIMEN ADEQUACY ? Satisfactory for Evaluation - transformation zone component present GENERAL CATEGORIZATION ? Epithelial Cell Abnormality INTERPRETATION ? Squamous Cell Abnormality - Atypical squamous cells, undetermined significance (ASC-US). 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 EDUCATIONAL NOTES/RECOMMENDATI ONS ? [facility] recommends following ASCCP's 2012 Updated Consensus Guidelines for the Management of Abnormal Cervical Cancer Screening Tests and Cancer Precursors (JLGTD, 2013; 17(5):S1-S27). ??Consensus guidelines are available online at www.asccp.org. Last Menstrual Period: 07/07/18 Menstrual/Pregnanc y Status: ?? Other: First Pap Specimen/Source: ??Pap Test, Cervix/Endocervix, ThinPrep Imaging System with manual evaluation Document reviewed and electronically signed by: ? PAMELA HOLDEN MD ? Report ??Date: 09/26/2018 15:53 HPV with Pap Test ? Date Ordered: ? 09/26/2018 ? Status: ?? Signed Out ?Date Complete: ? 09/29/2018 ? By: ??System Interface ? Date Reported: ? 09/29/2018 ? Interpretation RESULT: Negative for HPV. No E6 or E7 mRNA is detected from HPV types 16,18,31,33,35, 39,45,51,52,56,58, 59,66, and 68 by telegraph mechanic mediated amplification. Comments Document reviewed and electronically signed by: ? System Interface ? Report date: 09/29/2018 By the signature above, the attending physician certifies that he/she has personally conducted a gross and/or microscopic examination of the described specimens and rendered or confirmed the above diagnosis. End of Report [facility] 09/19/2018 09/22/2018 us Leidy Shen [facility] ORDERABLES F inal Result [facility] [address] [place] [address] documented in this encounter Visit Diagnoses Not on filedocumented in this encounter Care Teams Stonemason Supervisor Relationship Specialty Start Date End Date Sandra Dorman NP [address] [place] [phone] PCP - General 09/05/17 documented as of this encounter
--- OUTSIDE RECORDS SUMMARY | 2024-06-19 00:34 | XMS_ITS | Clinical Summary ---
Author Organization [facility] Address [address] [place] [address] Care Team Providers Care Loan Supervisor Name Role Phone Sandra Mann [employer] PERSON Primary Care Provider [phone] Social History Tobacco Use Types Packs/Day Years Used Date Smoking Tobacco: Never Assessed Interpersonal Safety Answer Date Record ed Physically Hurt Never 02/08/2020 Verbally Threaten Not on file 02/08/2020 Comments Unknown Sex and Gender Information Value Date Recorded Sex Assigned at Not on file Legal Sex Female 19:50 EST Gender Identity Not on file Sexual Orientation Not on file Plan of Treatment Health Maintenance Due Date Last Done Comments Hepatitis C Screen 1995 Hepatitis B Vaccine (1 of 3 - 19+ 3-dose series) 03/19 COVID-19 Vaccine ( season) [address] [facility] Care Teams Loan Supervisor Relationship Specialty Start Date End Date Sandra Mann NP [address] [place] [address] [phone] PCP - General 09/05/17
--- OUTSIDE RECORDS SUMMARY | 2024-06-19 00:34 | XMS_ITS | Referral Summary ---
Author Organization [facility] Address [address] [place] [address] Care Team Providers Care Regulatory Manager Name Role Phone Sandra Mann [employer]ER Primary Care Provider [phone] Social History Tobacco Use Types Packs/Day Years Used Date Smoking Tobacco: Never Assessed Interpersonal Safety Answer Date Record ed Physically Hurt Never 02/08/2020 Verbally Threaten Not on file 02/08/2020 Comments Unknown Sex and Gender Information Value Date Recorded Sex Assigned at Not on file Legal Sex Female 19:50 EST Gender Identity Not on file Sexual Orientation Not on file Plan of Treatment Not on file Insurance [facility] Care Teams Regulatory Manager Relationship Specialty Start Date End Date Sandra Mann NP [address] [place] [phone] [facility] - General 09/05/17
--- NOTE | 2024-06-19 13:27 | DI.RAD_ITS ---
Exam(s) XR LUMBAR SPINE COMPLETE EXAM: XR LUMBAR SPINE COMPLETE CLINICAL HISTORY: LOW BACK PAIN M54.50 SI JOINT SACRUM AND HIP PAIN. TECHNIQUE: 2D digital imaging was performed. Five views. COMPARISON: No exams were available for comparison FINDINGS: BONES: No fracture or destructive lesion. Vertebral body heights are maintained. No facet hypertro phy identified . Mild spurring at the inferior left SI joint. DISKS: Intervertebral disc spaces are maintained. ALIGNMENT: Lumbar spinal alignment is within normal limits. SOFT TISSUE: Right upper quadrant surgical clips. 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 DATA REPOSITORY: RADIATION DOSE DELIVERED:
== END 2024-06-19 00:50 ==
LOC: DI 00:30
PROVIDERS: PCP Nurse Practitioner Family; Visit Provider Nurse Practitioner Family
DX: M51.360 Other intervertebral disc degeneration, lumbar region with discogenic back pain only (principal)
CPT/HCPCS: 73521; 72110

== ENCOUNTER 2024-10-09 14:30 | Outpatient (REF) | payer BC, SELFPAY ==
[2024-10-09 21:20] LABS: Abs Immature Grans 0.06 10^3/uL (0.0-0.06); Absolute Basophil Count 0.07 10^3/uL (0.0-0.2); Absolute Monocyte Count 0.63 10^3/uL (0.1-0.8); Absolute Neutrophil Count 8.98 10^3/uL (1.2-6.7); Basophils % 0.6 %; Eosinophils % 0.6 %; HCT 38.3 % (36.0-46.0); HGB 12.3 g/dL (11.2-15.7); Immature Grans % 0.5 %; Lymphocytes % 20.3 %; MCH 29.9 pg (27.0-33.0); MCHC 32.1 % (32.0-36.0); MCV 93 fL (80-95); MPV 9.5 fL (8.0-11.0); Monocytes % 5.1 %; Neutrophils % 72.9 %; Platelet Count 482 10^3/uL (130-400); RBC 4.12 10^6/uL (3.93-5.22); RDW-SD 44.2 fL; WBC 12.32 10^3/uL (4.4-10.8)
[2024-10-09 21:38] LABS: Absolute Eosinophil Count 0.07 10^3/uL (0.0-0.7)
[2024-10-09 21:59] LABS: Hemoglobin A1C 5.3 % (<5.7)
[2024-10-09 22:03] LABS: ALT 18 U/L (14-59); AST 12 U/L (15-37); Albumin 4.3 g/dL (3.4-5.0); Alkaline Phosphatase 81 U/L (46-116); Anion Gap 12.1 mmol/L (3-11); BUN 11 mg/dL (7-18); Bilirubin, Total 0.2 mg/dL (0.2-1.0); CO2 26.9 mmol/L (21.0-32.0); CREATININE 0.7 mg/dL (0.55-1.02); Calcium 9.5 mg/dL (8.5-10.1); Chloride 105 mmol/L (98-107); Estimated GFR 121.49 (mL/min/1.73m2); Glucose 104 mg/dL (74-106); Potassium 3.6 mmol/L (3.5-5.1); Sodium 144 mmol/L (136-145); TSH 1.53 uIU/mL (0.36-3.74); Vitamin D 25 Total 14 ng/mL (30-100)
== END 2024-10-09 14:31 | disposition home or self-care (01) ==
LOC: NCHCN 14:30
PROVIDERS: PCP Nurse Practitioner Family; Visit Provider Nurse Practitioner Family
DX: Z68.42 Body mass index [BMI] 45.0-49.9, adult (principal); G43.109 Migraine with aura, not intractable, without status migrainosus; E55.9 Vitamin D deficiency, unspecified; Z86.39 Personal history of other endocrine, nutritional and metabolic disease; E66.9 Obesity, unspecified
CPT/HCPCS: 80053; 82306; 83036; 84439; 84443; 85025